=== PATIENT | female | born 1985 | race Native Hawaiian/Other Pacific Islander ===

== ENCOUNTER → 2022-02-13 | Outpatient (CLI) | payer MEDICAID ==
[2022-02-13 15:11] LABS: APPEARANCE, URINE CLEAR (CLEAR); BACTERIA, URINE AUTO 1+ (NEGATIVE); BASO % 0.7 % (0.0-1.0); BILIRUBIN, URINE AUTO NEGATIVE (NEGATIVE); BLOOD, URINE BLOOD 1+ (NEGATIVE); COLOR, URINE YELLOW (YELLOW); EOS # 0.1 10^3/uL (0.0-0.5); EOS % 1.9 % (0.0-3.0); GLUCOSE, URINE (UA) AUTO NEGATIVE (NEGATIVE); HEMATOCRIT 39.2 % (36.0-47.0); HEMOGLOBIN 13.2 g/dl (12.0-15.5); KETONE, URINE AUTO NEGATIVE (NEGATIVE); LEUKOCYTE ESTERASE, URINE AUTO NEGATIVE (NEGATIVE); LYMPH # 2.5 10^3/uL (1.5-5.0); MEAN CORPUSCULAR HEMOGLOBIN 31.4 pg (27.0-33.0); MEAN CORPUSCULAR HGB CONC 33.7 g/dl (32.0-36.5); MEAN CORPUSCULAR VOLUME 93.1 fl (80.0-96.0); MONO # 0.4 10^3/uL (0.0-0.8); MONO % 7.7 % (2.0-8.0); MUCUS, URINE SMALL (NEGATIVE); NEUTROPHILS # 2.3 10^3/uL (1.5-8.5); NEUTROPHILS % 43.5 % (36.0-66.0); NITRITE, URINE AUTO NEGATIVE (NEGATIVE); PLATELET COUNT, AUTOMATED 261 10^3/uL (150-450); PROTEIN, URINE AUTO NEGATIVE (NEGATIVE); RBC, URINE AUTO 0 /HPF (0-3); RED BLOOD COUNT 4.21 10^6/uL (4.00-5.40); SQUAMOUS EPITHELIAL CELL UR AU 0 /HPF (0-6); UROBILINOGEN, URINE AUTO 0.2 mg/dL (0.0-2.0); WBC, URINE AUTO 2 /HPF (0-3); WHITE BLOOD COUNT 5.4 10^3/uL (4.0-10.0)
[2022-02-13 15:44] LABS: ALBUMIN 3.8 GM/DL (3.2-5.2); ALT/SGPT 46 U/L (12-78); BILIRUBIN,TOTAL 0.8 MG/DL (0.2-1.0); BLOOD UREA NITROGEN 12 MG/DL (7-18); CALCIUM LEVEL 8.7 MG/DL (8.5-10.1); CARBON DIOXIDE LEVEL 29 MEQ/L (21-32); CHLORIDE LEVEL 105 MEQ/L (98-107); CREATININE FOR GFR 0.68 MG/DL (0.55-1.30); GLOMERULAR FILTRATION RATE > 60.0 (>60); GLUCOSE, FASTING 79 MG/DL (70-100); RHEUMATOID FACTOR QUANT < 10.0 IU/ML (<15.0); SODIUM LEVEL 137 MEQ/L (136-145)
[2022-02-13 15:50] LABS: ERYTHROCYTE SEDIMENTATION RATE 33 mm/hr (0-20)
== END ==
LOC: M LAB 13:42
PROVIDERS: ATTEND Family Medicine
DX: M25.531 Pain in right wrist (principal)

== ENCOUNTER → 2022-04-05 | Outpatient (REF) | payer MEDICAID | LOC: M SFHCLERA 11:04 | PROVIDERS: ATTEND Family Medicine | DX: R35.0 Frequency of micturition (principal) ==

== ENCOUNTER → 2022-05-25 | Outpatient (CLI) | payer MEDICAID | LOC: M WHC 15:00 | PROVIDERS: ATTEND Family Medicine | DX: D25.9 Leiomyoma of uterus, unspecified (principal); N94.10 Unspecified dyspareunia ==

== ENCOUNTER → 2022-08-08 | Outpatient (CLI) | payer MEDICAID | LOC: M PLALAB 13:13 | PROVIDERS: ATTEND Family Medicine | DX: M25.50 Pain in unspecified joint (principal) ==

== ENCOUNTER → 2022-09-15 | Outpatient (CLI) | payer MEDICAID | LOC: M SOG 14:59 | PROVIDERS: ATTEND Orthopaedic Surgery Hand Surgery | DX: M25.531 Pain in right wrist (principal); M25.532 Pain in left wrist ==

== ENCOUNTER 2023-03-27 06:32 | Emergency (ER) | payer MEDICAID ==
[~2023-03-27] VITALS: Ht 149.9 cm; Wt 59.4 kg
[2023-03-27 08:01] LABS: APPEARANCE, URINE CLEAR (CLEAR); BACTERIA, URINE AUTO NEGATIVE (NEGATIVE); BILIRUBIN, URINE AUTO NEGATIVE (NEGATIVE); BLOOD, URINE BLOOD NEGATIVE (NEGATIVE); COLOR, URINE YELLOW (YELLOW); GLUCOSE, URINE (UA) AUTO NEGATIVE (NEGATIVE); KETONE, URINE AUTO NEGATIVE (NEGATIVE); LEUKOCYTE ESTERASE, URINE AUTO NEGATIVE (NEGATIVE); MUCUS, URINE SMALL (NEGATIVE); NITRITE, URINE AUTO NEGATIVE (NEGATIVE); PROTEIN, URINE AUTO 1+ mg/dL (NEGATIVE); RBC, URINE AUTO 1 /HPF (0-3); SPECIFIC GRAVITY URINE AUTO 1.024 (1.002-1.035); SQUAMOUS EPITHELIAL CELL UR AU 3 /HPF (0-6); UROBILINOGEN, URINE AUTO 0.2 mg/dL (0.0-2.0); WBC, URINE AUTO 0 /HPF (0-3)
[2023-03-27] MEDS ORDERED: MORPHINE 2 MG/ML 1ML VIAL IV PRN (08:25)
[2023-03-27] MEDS ORDERED: METOCLOPRAMIDE INJ 10MG/2ML VIAL IV ONE (08:25)
[2023-03-27] MEDS ORDERED: NS 1,000 ML IV ONE ×2 (08:25)
[2023-03-27 09:21] LABS: BASO % 0.5 % (0.0-1.0); EOS # 0.1 10^3/uL (0.0-0.5); EOS % 1.2 % (0.0-3.0); HEMATOCRIT 37.5 % (36.0-47.0); HEMOGLOBIN 12.8 g/dl (12.0-15.5); LYMPH # 1.4 10^3/uL (1.5-5.0); LYMPH % 18.4 % (24.0-44.0); MEAN CORPUSCULAR HEMOGLOBIN 31.1 pg (27.0-33.0); MEAN CORPUSCULAR HGB CONC 34.1 g/dl (32.0-36.5); MEAN CORPUSCULAR VOLUME 91.2 fl (80.0-96.0); MONO # 0.4 10^3/uL (0.0-0.8); MONO % 5.5 % (2.0-8.0); NEUTROPHILS # 5.5 10^3/uL (1.5-8.5); NEUTROPHILS % 74.1 % (36.0-66.0); PLATELET COUNT, AUTOMATED 257 10^3/uL (150-450); RED BLOOD COUNT 4.11 10^6/uL (4.00-5.40); WHITE BLOOD COUNT 7.5 10^3/uL (4.0-10.0)
[2023-03-27] MEDS ORDERED: KETOROLAC 30 MG/ML 1ML VIAL IV ONE (09:35)
[2023-03-27 09:50] LABS: LIPASE 36 U/L (12-53)
[2023-03-27 09:52] LABS: ALKALINE PHOSPHATASE 67 U/L (46-116); ALT/SGPT 27 U/L (7.0-40); AST/SGOT 35 U/L (<34); BILIRUBIN,DIRECT 0.1 MG/DL (<0.4); BILIRUBIN,TOTAL 0.5 MG/DL (0.3-1.2); BLOOD UREA NITROGEN 13 MG/DL (9-23); CALCIUM LEVEL 8.9 MG/DL (8.5-10.1); CARBON DIOXIDE LEVEL 24 MMOL/L (20-31); CHLORIDE LEVEL 106 MMOL/L (98-107); CREATININE FOR GFR 0.66 MG/DL (0.55-1.30); GLOMERULAR FILTRATION RATE > 60.0 (>60); GLUCOSE, FASTING 101 MG/DL (60-100); POTASSIUM SERUM 4.2 MMOL/L (3.5-5.1); SODIUM LEVEL 137 MMOL/L (136-145); TOTAL PROTEIN 7.6 G/DL (5.7-8.2)
[2023-03-27 09:56] LABS: HCG, SERUM QUALITATIVE NEGATIVE (NEGATIVE)
[2023-03-27] MEDS ORDERED: ISOVUE-370 76% 100ML VIAL As Ordered ONE (10:00)
[2023-03-27 11:45] VITALS: BP 99/58
== END 2023-03-27 13:57 | disposition home or self-care (01) ==
LOC: M ED 06:32
DX: R10.9 Unspecified abdominal pain (principal)
CPT/HCPCS: 74177; 80048; 80076; 81001; 83605; 83690; 84702; 84703; 85025; 99284; J1885; J2765; Q9967

== ENCOUNTER → 2023-04-06 | Outpatient (CLI) | payer MEDICAID | LOC: M PLAIMG 13:17 | PROVIDERS: ATTEND Family Medicine | DX: R05.9 Cough, unspecified (principal) ==

== ENCOUNTER → 2023-06-21 | Outpatient (REF) | payer MEDICAID ==
[2023-06-21 17:05] LABS: URINE PREG TEST POSITIVE (NEGATIVE)
== END ==
LOC: M SFHCLERA 16:55
PROVIDERS: ATTEND Student in an Organized Health Care Education/Training Program
DX: Z32.01 Encounter for pregnancy test, result positive (principal)

== ENCOUNTER → 2023-07-10 | Outpatient (CLI) | payer MEDICAID | LOC: M PLALAB 12:37 | PROVIDERS: ATTEND Advanced Practice Midwife | DX: O03.4 Incomplete spontaneous abortion without complication (principal) ==

== ENCOUNTER → 2023-07-11 | Outpatient (CLI) | payer MEDICAID | LOC: M WHC 11:02 | PROVIDERS: ATTEND Advanced Practice Midwife | DX: O03.4 Incomplete spontaneous abortion without complication (principal) ==

== ENCOUNTER → 2023-07-18 | Outpatient (CLI) | payer MEDICAID | LOC: M PLALAB 14:35 | PROVIDERS: ATTEND Advanced Practice Midwife | DX: O03.9 Complete or unspecified spontaneous abortion without complication (principal) ==

== ENCOUNTER → 2023-11-29 | Outpatient (CLI) | payer MEDICAID, OTHER ==
[~2023-11-29] MED LIST: CEPH500C PO; CETI10CA2 PO; COLA100C5 PO; PNV1TABL16 PO
[2023-11-29 17:50] LABS: HEMATOCRIT 34.9 % (36.0-47.0); HEMOGLOBIN 11.9 g/dl (12.0-15.5); MEAN CORPUSCULAR HEMOGLOBIN 30.7 pg (27.0-33.0); MEAN CORPUSCULAR HGB CONC 34.1 g/dl (32.0-36.5); MEAN CORPUSCULAR VOLUME 90.2 fl (80.0-96.0); PLATELET COUNT, AUTOMATED 270 10^3/uL (150-450); RED BLOOD COUNT 3.87 10^6/uL (4.00-5.40); WHITE BLOOD COUNT 8.4 10^3/uL (4.0-10.0)
[2023-11-29 18:53] LABS: HIV 1&2 SCREEN NEGATIVE (NEGATIVE)
[2023-11-29 19:02] LABS: HEPATITIS C VIRUS ABY INDEX 0.02 INDEX (<0.8)
== END ==
LOC: M PLALAB 15:50
PROVIDERS: ATTEND Advanced Practice Midwife
DX: O09.521 Supervision of elderly multigravida, first trimester (principal); Z3A.00 Weeks of gestation of pregnancy not specified

== ENCOUNTER 2023-12-06 11:23 | Observation (INO) | payer OTHER ==
[~2023-12-06] VITALS: Ht 149.9 cm; Wt 57.7 kg
[2023-12-06] MEDS ORDERED: ONDA4TAB6 (12:55)
[2023-12-06] MEDS ORDERED: METO10TA2 (12:55)
[2023-12-06] MEDS ORDERED: PROMETHAZINE (12:55)
[2023-12-06] MEDS ORDERED: ONDANSETRON 4MG 2ML VIAL IV ONE (13:25)
[2023-12-06] MEDS ORDERED: MULTIVITAMIN -ADULT INJECTION 10 ML, THIAMINE INJection 100 MG, FOLIC ACID 1 MG in NS 1... IV ONE (13:25)
[2023-12-06 14:21] LABS: BASO % 0.3 % (0.0-1.0); EOS % 0.7 % (0.0-3.0); HEMATOCRIT 34.7 % (36.0-47.0); HEMOGLOBIN 11.9 g/dl (12.0-15.5); LYMPH # 0.7 10^3/uL (1.5-5.0); LYMPH % 11.5 % (24.0-44.0); MEAN CORPUSCULAR HEMOGLOBIN 31.2 pg (27.0-33.0); MEAN CORPUSCULAR HGB CONC 34.3 g/dl (32.0-36.5); MEAN CORPUSCULAR VOLUME 91.1 fl (80.0-96.0); MONO # 0.5 10^3/uL (0.0-0.8); MONO % 7.8 % (2.0-8.0); NEUTROPHILS # 4.7 10^3/uL (1.5-8.5); NEUTROPHILS % 79.5 % (36.0-66.0); PLATELET COUNT, AUTOMATED 214 10^3/uL (150-450); RED BLOOD COUNT 3.81 10^6/uL (4.00-5.40); WHITE BLOOD COUNT 5.9 10^3/uL (4.0-10.0)
[2023-12-06 14:45] LABS: LIPASE 43 U/L (12-53)
[2023-12-06 14:48] LABS: ALBUMIN 3.3 G/DL (3.2-5.2); ALKALINE PHOSPHATASE 62 U/L (46-116); ALT/SGPT 22 U/L (7.0-40); AST/SGOT 37 U/L (<34); BILIRUBIN,DIRECT 0.2 MG/DL (<0.4); BILIRUBIN,TOTAL 0.5 MG/DL (0.3-1.2); BLOOD UREA NITROGEN 10 MG/DL (9-23); CARBON DIOXIDE LEVEL 24 MMOL/L (20-31); CHLORIDE LEVEL 104 MMOL/L (98-107); CREATININE FOR GFR 0.46 MG/DL (0.55-1.30); GLOMERULAR FILTRATION RATE > 60.0 (>60); GLUCOSE, FASTING 72 MG/DL (60-100); POTASSIUM SERUM 3.5 MMOL/L (3.5-5.1); SODIUM LEVEL 133 MMOL/L (136-145); TOTAL PROTEIN 7.6 G/DL (5.7-8.2)
[2023-12-06] MEDS ORDERED: diphenhydrAMINE 50MG/ML VIAL IV STA (16:17)
[2023-12-06] MEDS ORDERED: PROMETHAZINE 25MG/ML 1ML VIAL IV ONE (16:20)
[2023-12-06] MEDS ORDERED: METOCLOPRAMIDE INJ 10MG/2ML VIAL IV ONE (16:20)
[2023-12-06] MEDS ORDERED: cefTRIAXone SOD 1 GM in D5W MINI-BAG PLUS 50 ML IV ONE (16:50)
[2023-12-06] MEDS: LR 1,000 ML IV SCH (19:10)
[2023-12-06] MEDS ORDERED: PROMETHAZINE 25MG SUPP PR PRN (19:10)
[2023-12-06 20:25] VITALS: BP 97/54; TEMP 98.8; O2SAT 98
[2023-12-06] MEDS ORDERED: PANTOPRAZOLE 40MG VIAL IV SCH ×2 (21:00)
[2023-12-06] MEDS: ONDANSETRON 4MG 2ML VIAL IV SCH (22:08)
[2023-12-06 22:30] VITALS: BP 101/59; TEMP 101.2; O2SAT 97
[2023-12-06] MEDS: ACETAMINOPHEN 500 MG TAB PO PRN (23:10)
[2023-12-07 02:30] VITALS: BP 90/51; O2SAT 97
[2023-12-07] MEDS: LR 1,000 ML IV SCH (03:10)
[2023-12-07 06:00] VITALS: BP 92/55
[2023-12-07] MEDS ORDERED: METOCLOPRAMIDE INJ 10MG/2ML VIAL IV SCH (06:00)
[2023-12-07] MEDS: ONDANSETRON 4MG 2ML VIAL IV SCH (06:09)
[2023-12-07] MEDS: ACETAMINOPHEN 500 MG TAB PO PRN (06:27)
[2023-12-07] MEDS ORDERED: ONDANSETRON 4MG TAB PO PRN (07:35)
[2023-12-07] MEDS ORDERED: METOCLOPRAMIDE 10MG TAB PO PRN (07:35)
[2023-12-07 08:25] LABS: BASO % 0.2 % (0.0-1.0); EOS % 0.5 % (0.0-3.0); HEMATOCRIT 29.1 % (36.0-47.0); LYMPH # 0.8 10^3/uL (1.5-5.0); MEAN CORPUSCULAR HEMOGLOBIN 31.3 pg (27.0-33.0); MEAN CORPUSCULAR HGB CONC 34.4 g/dl (32.0-36.5); MEAN CORPUSCULAR VOLUME 90.9 fl (80.0-96.0); MONO # 0.5 10^3/uL (0.0-0.8); MONO % 11.5 % (2.0-8.0); NEUTROPHILS % 69.6 % (36.0-66.0); PLATELET COUNT, AUTOMATED 176 10^3/uL (150-450); WHITE BLOOD COUNT 4.3 10^3/uL (4.0-10.0)
[2023-12-07 08:52] LABS: ALBUMIN 2.4 G/DL (3.2-5.2); ALKALINE PHOSPHATASE 52 U/L (46-116); ALT/SGPT 20 U/L (7.0-40); AST/SGOT 31 U/L (<34); BILIRUBIN,TOTAL 0.3 MG/DL (0.3-1.2); BLOOD UREA NITROGEN 7 MG/DL (9-23); CALCIUM LEVEL 7.8 MG/DL (8.5-10.1); CARBON DIOXIDE LEVEL 23 MMOL/L (20-31); CHLORIDE LEVEL 110 MMOL/L (98-107); CREATININE FOR GFR 0.54 MG/DL (0.55-1.30); GLOMERULAR FILTRATION RATE > 60.0 (>60); GLUCOSE, FASTING 97 MG/DL (60-100); POTASSIUM SERUM 3.5 MMOL/L (3.5-5.1); SODIUM LEVEL 138 MMOL/L (136-145); TOTAL PROTEIN 5.7 G/DL (5.7-8.2)
[2023-12-07 10:00] VITALS: BP 83/59; O2SAT 97
[2023-12-07] MEDS ORDERED: OSEL75CA PO (10:31)
[2023-12-07] MEDS ORDERED: cefTRIAXone SOD 1 GM in D5W MINI-BAG PLUS 50 ML IV SCH (18:00)
== END 2023-12-07 11:25 | disposition home or self-care (01) ==
LOC: M ED 11:23 → M ED INP 11:24 → M OBS 20:34
PROVIDERS: ADMIT Obstetrics & Gynecology; ATTEND Obstetrics & Gynecology
DX: O98.511 Other viral diseases complicating pregnancy, first trimester (principal); B34.9 Viral infection, unspecified; Z79.899 Other long term (current) drug therapy; Z3A.10 10 weeks gestation of pregnancy
CPT/HCPCS: 36415; 80048; 80053; 80076; 81001; 83690; 85025; 87088; 87186; 87486; 87581; 87633; 87635; 87798; 96361; 96365; 96375; 96376; 99284; C9113; J0696; J1200; J2405; J2550; J2765; J3411

== ENCOUNTER → 2023-12-13 | Outpatient (CLI) | payer OTHER ==
[~2023-12-13] MED LIST changes: +METO10TA2; +ONDA4TAB6; +OSEL75CA PO; +PROMETHAZINE
== END ==
LOC: M PLALAB 14:08
PROVIDERS: ATTEND Advanced Practice Midwife
DX: O09.521 Supervision of elderly multigravida, first trimester (principal); Z3A.00 Weeks of gestation of pregnancy not specified

== ENCOUNTER → 2024-02-04 | Outpatient (CLI) | payer OTHER ==
[2024-02-04 16:13] LABS: TOTAL PROTEIN,RANDOM URINE 8.2 MG/DL (0.0-14.0)
[2024-02-04 16:17] LABS: CREATININE,RANDOM URINE 54.1 MG/DL
[2024-02-04 16:20] LABS: ALKALINE PHOSPHATASE 54 U/L (46-116); ALT/SGPT 12 U/L (7.0-40); AST/SGOT 16 U/L (<34); BILIRUBIN,TOTAL 0.2 MG/DL (0.3-1.2); BLOOD UREA NITROGEN 8 MG/DL (9-23); CALCIUM LEVEL 8.9 MG/DL (8.5-10.1); CARBON DIOXIDE LEVEL 27 MMOL/L (20-31); CHLORIDE LEVEL 102 MMOL/L (98-107); CREATININE FOR GFR 0.61 MG/DL (0.55-1.30); GLOMERULAR FILTRATION RATE > 60.0 (>60); GLUCOSE, FASTING 79 MG/DL (60-100); SODIUM LEVEL 136 MMOL/L (136-145); TOTAL PROTEIN 7.2 G/DL (5.7-8.2)
[2024-02-04 16:21] LABS: THYROID STIMULATING HORMONE 0.485 uIU/ML (0.55-4.78)
[2024-02-04 16:22] LABS: FREE T4 1.02 NG/DL (0.89-1.76)
== END ==
LOC: M PLALAB 14:21
PROVIDERS: ATTEND Advanced Practice Midwife
DX: O09.521 Supervision of elderly multigravida, first trimester (principal); Z3A.00 Weeks of gestation of pregnancy not specified

== ENCOUNTER → 2024-02-19 | Outpatient (CLI) | payer OTHER | LOC: M WHC 14:21 | PROVIDERS: ATTEND Obstetrics & Gynecology | DX: Z34.92 Encounter for supervision of normal pregnancy, unspecified, second trimester (principal); Z3A.21 21 weeks gestation of pregnancy ==

== ENCOUNTER → 2024-04-01 | Outpatient (CLI) | payer OTHER ==
[2024-04-01 17:23] LABS: HEMATOCRIT 32.9 % (36.0-47.0); MEAN CORPUSCULAR HEMOGLOBIN 31.8 pg (27.0-33.0); MEAN CORPUSCULAR HGB CONC 33.4 g/dl (32.0-36.5); MEAN CORPUSCULAR VOLUME 95.1 fl (80.0-96.0); PLATELET COUNT, AUTOMATED 239 10^3/uL (150-450); RED BLOOD COUNT 3.46 10^6/uL (4.00-5.40); WHITE BLOOD COUNT 6.3 10^3/uL (4.0-10.0)
== END ==
LOC: M PLALAB 13:59
PROVIDERS: ATTEND Obstetrics & Gynecology
DX: Z34.92 Encounter for supervision of normal pregnancy, unspecified, second trimester (principal)

== ENCOUNTER → 2024-04-22 | Outpatient (REF) | payer MEDICAID ==
[~2024-04-22] MED LIST changes: +ASPI81CH33 PO; +ONDA-282; -ONDA4TAB6
[2024-04-22 21:02] LABS: GC DNA AMPLIFICATION NEGATIVE (NEGATIVE)
== END ==
LOC: M SFHCWAGY 17:00
PROVIDERS: ATTEND Obstetrics & Gynecology
DX: Z34.92 Encounter for supervision of normal pregnancy, unspecified, second trimester (principal)

== ENCOUNTER 2024-04-23 12:04 | Outpatient (CLI) | payer MEDICAID ==
[~2024-04-23] VITALS: Ht 149.9 cm; Wt 60.2 kg
[~2024-04-23 12:04] MED LIST changes: -ASPI81CH33 PO
[2024-04-23 12:25] VITALS: BP 96/60
[2024-04-23] MEDS ORDERED: ASPI81CH33 PO (12:28)
[2024-04-23] MEDS: LACTATED RINGER'S 1000 ML IV ONE (13:24)
[2024-04-23 13:38] LABS: APPEARANCE, URINE HAZY (CLEAR); BACTERIA, URINE AUTO NEGATIVE (NEGATIVE); BILIRUBIN, URINE AUTO NEGATIVE (NEGATIVE); BLOOD, URINE BLOOD NEGATIVE (NEGATIVE); COLOR, URINE YELLOW (YELLOW); GLUCOSE, URINE (UA) AUTO 1+ mg/dL (NEGATIVE); KETONE, URINE AUTO NEGATIVE (NEGATIVE); LEUKOCYTE ESTERASE, URINE AUTO NEGATIVE (NEGATIVE); NITRITE, URINE AUTO NEGATIVE (NEGATIVE); PROTEIN, URINE AUTO 1+ mg/dL (NEGATIVE); RBC, URINE AUTO 0 /HPF (0-3); SPECIFIC GRAVITY URINE AUTO 1.018 (1.002-1.035); SQUAMOUS EPITHELIAL CELL UR AU 3 /HPF (0-6); UROBILINOGEN, URINE AUTO 0.2 mg/dL (0.0-2.0); WBC, URINE AUTO 0 /HPF (0-3)
== END 2024-04-23 15:10 | disposition home or self-care (01) ==
LOC: M LDO 12:04
PROVIDERS: ATTEND Advanced Practice Midwife
DX: O47.03 False labor before 37 completed weeks of gestation, third trimester (principal); O09.523 Supervision of elderly multigravida, third trimester; O09.213 Supervision of pregnancy with history of pre-term labor, third trimester; Z3A.30 30 weeks gestation of pregnancy
CPT/HCPCS: 59025; 76816; 76820; 81001; G0463

== ENCOUNTER 2024-05-18 21:17 | Outpatient (CLI) | payer MEDICAID ==
[~2024-05-18] VITALS: Ht 149.9 cm; Wt 60.2 kg
[~2024-05-18 21:17] MED LIST changes: +ASPI81CH33 PO
[2024-05-18 21:31] VITALS: BP 90/54; O2SAT 98
[2024-05-18] MEDS: BETAMETHASONE SOLUSPAN 6MG/ML 5ML VIAL IM ONE (22:28)
[2024-05-18 22:50] VITALS: BP 94/52
== END 2024-05-18 23:00 | disposition home or self-care (01) ==
LOC: M LDO 21:17
PROVIDERS: ATTEND Specialist
DX: O36.8130 Decreased fetal movements, third trimester, not applicable or unspecified (principal); O09.523 Supervision of elderly multigravida, third trimester; Z87.51 Personal history of pre-term labor; Z3A.33 33 weeks gestation of pregnancy
CPT/HCPCS: 59025; 76815; 87081; G0463; J0702

== ENCOUNTER 2024-05-19 14:27 | Outpatient (CLI) | payer MEDICAID ==
[~2024-05-19] VITALS: Ht 149.9 cm; Wt 60.6 kg
[2024-05-19 14:43] VITALS: BP 105/58; O2SAT 98
[2024-05-19] MEDS ORDERED: HOME MED LIST COMPLETE! XX SCH (14:45)
[2024-05-19] MEDS: BETAMETHASONE SOLUSPAN 6MG/ML 5ML VIAL IM ONE (14:51)
[2024-05-19 15:37] VITALS: BP 94/54
== END 2024-05-19 15:42 | disposition home or self-care (01) ==
LOC: M LDO 14:27
PROVIDERS: ATTEND Advanced Practice Midwife
DX: O60.03 Preterm labor without delivery, third trimester (principal); O09.523 Supervision of elderly multigravida, third trimester; Z87.51 Personal history of pre-term labor; Z3A.34 34 weeks gestation of pregnancy
CPT/HCPCS: 59025; 96372; G0463; J0702

== ENCOUNTER 2024-05-27 00:53 | Outpatient (CLI) | payer MEDICAID, OTHER ==
[2024-05-27 01:06] VITALS: BP 99/57
== END 2024-05-27 01:27 | disposition home or self-care (01) ==
LOC: M LDO 00:53
PROVIDERS: ATTEND Advanced Practice Midwife
DX: O26.893 Other specified pregnancy related conditions, third trimester (principal); M54.31 Sciatica, right side; O09.523 Supervision of elderly multigravida, third trimester; Z3A.35 35 weeks gestation of pregnancy
CPT/HCPCS: 59025; G0463